=== PATIENT | female | born 1970 | race Caucasian/White ===

== ENCOUNTER 2016-07-04 17:29 | Emergency (ER) | payer MEDICAID ==
[~2016-07-04] VITALS: Ht 154.9 cm; Wt 61.2 kg
[2016-07-04 17:37] VITALS: BP 129/88
== END 2016-07-04 18:26 | disposition home or self-care (01) ==
LOC: ER 17:31
DX: J40 Bronchitis, not specified as acute or chronic (principal); H92.03 Otalgia, bilateral; Z88.0 Allergy status to penicillin
CPT/HCPCS: 71010; 99283; A4606; Z7610

== ENCOUNTER 2018-05-07 14:56 | Emergency (ER) | payer MEDICAID ==
[~2018-05-07] VITALS: Ht 167.6 cm; Wt 65.8 kg
--- NOTE | 2018-05-07 15:29 | NUR ---
1404 BIBRA99, ALCOHOL INTOXICATION. PT IS CALM AND COOPERATIVE. SKIN INTACT, NO ACUTE DISTRESS NOTED. HOOKED TO MONITOR. READY FOR EVAL. WILL MONITOR CLOSELY.
--- NOTE | 2018-05-07 17:14 | NUR ---
Patient is resting comfortably in bed with eyes closed. Easily aroused. VSS. NO COMPLAINTS AT THIS TIME. WILL CONT TO MONITOR.
--- NOTE | 2018-05-07 19:00 | NUR ---
Patient given written and verbal discharge instructions. Patient verbalizes understanding of instructions. Patient is ambulatory with steady gait. Refuses offer of assisted placement. Patient given list of available shelters in surrounding area. ALSO GIVEN FOOD, JUICE, AND TAP CARD.
[2018-05-07 19:51] VITALS: BP 110/68
== END 2018-05-07 19:00 | disposition home or self-care (01) ==
LOC: ER 15:00
DX: F10.129 Alcohol abuse with intoxication, unspecified (principal); Z88.0 Allergy status to penicillin; Z88.1 Allergy status to other antibiotic agents; Y90.9 Presence of alcohol in blood, level not specified

== ENCOUNTER 2019-11-28 10:58 | Emergency (ER) | payer OTHER ==
[~2019-11-28] VITALS: Ht 149.9 cm; Wt 70.8 kg
--- NOTE | 2019-11-28 11:07 | NUR ---
COLEEN SANTIAGO [phone] SISTER
--- NOTE | 2019-11-28 11:32 | NUR ---
MAXI TO ER BED 14. AWAKE, ALERT BUT INTOXICATED ADMITS TO DRINKING. NOT IN RESP DISTRESS. BROUGHT IN FOR ALCOHOL INTOXICATION. MD WAS AT THE BEDSIDE FOR EVAL. ORDERS RECEIVED. SUPERVISORY INVESTIGATIVE SPECIALIST WAS AT THE BEDSIDE FOR BLOOD DRAW.
[2019-11-28] MEDS ORDERED: MULTIVITAMINS,THERAGRAN 1 UDTAB TABLET PO SCH (13:00)
[2019-11-28] MEDS ORDERED: IV 1/2NS 1000 ML 1,000 ML IV PRN (13:00)
[2019-11-28] MEDS ORDERED: FOLIC ACID 1 MG TABLET PO ONE (13:00)
[2019-11-28] MEDS ORDERED: ONDANSETRON HCL/PF 4 MG/2 ML VIAL IVP PRN (13:00)
[2019-11-28] MEDS ORDERED: MAG HYDROX/AL HYDROX/SIMETH 30 ML UDC PO PRN (13:00)
[2019-11-28] MEDS ORDERED: MAGNESIUM HYDROXIDE 30 ML UDC PO PRN (13:00)
[2019-11-28] MEDS ORDERED: ACETAMINOPHEN 325 MG TABLET PO PRN (13:00)
[2019-11-28] MEDS ORDERED: LORAZEPAM 1 MG TABLET PO PRN (13:00)
[2019-11-28] MEDS ORDERED: THIAMINE HCL 100 MG TABLET PO ONE (13:00)
[2019-11-28] MEDS ORDERED: FOLIC ACID 1 MG TABLET ONE (13:11)
[2019-11-28] MEDS ORDERED: THIAMINE HCL 100 MG TABLET ONE (13:11)
--- NOTE | 2019-11-28 15:20 | NUR ---
PT IS AWAKE. REQUESTING TO GO HOME. PT'S AMBULATION WAS TESTED AND PT'S GAIT IS STEADY W/O ASSIST. PT WAS PROVIDED WITH WATER PER PT REQUEST.
--- NOTE | 2019-11-28 15:23 | NUR ---
SPOKE WITH TORRES OCONNELL REGARDING PT DISCHARGE. PT IS CLEARED FOR DISCHARGE.
--- NOTE | 2019-11-28 15:40 | NUR ---
Patient discharged to home in stable condition. Written and verbal after care instructions given. Patient verbalizes understanding of instruction.IV removed. Catheter intact and site benign. Pressure and 4x4 applied to site. No bleeding noted. Pt ambulatory with a steady gait
[2019-11-28 15:41] VITALS: BP 151/98
== END 2019-11-28 15:41 | disposition home or self-care (01) ==
LOC: ER 11:02
DX: F10.129 Alcohol abuse with intoxication, unspecified (principal); Y90.8 Blood alcohol level of 240 mg/100 ml or more; Z88.0 Allergy status to penicillin
CPT/HCPCS: 36415; 80320; 96360; 96361; 99284; J3490; G0480

== ENCOUNTER 2020-05-07 07:41 | Emergency (ER) | payer OTHER ==
[~2020-05-07] VITALS: Ht 165.1 cm; Wt 67.1 kg
--- NOTE | 2020-05-07 07:41 | NUR ---
PT BIBRA39 FROM STREETS, SITTING ON A BENCH W/ A BOTTLE OF TEQUILA. PT IS AAOX3, NOT IN RESPIRATORY DISTRESS, HOOKED TO INSTRUMENT AND CONTROLS TECHNICIAN, KEPT RESTED AND COMFORTABLE. WILL CONTINUE TO MONITOR.
--- NOTE | 2020-05-07 08:15 | NUR ---
IV LINE ESTABLISHED BLOOD DRAWN AND SENT TO LAB.
[2020-05-07 08:46] LABS: CALCIUM, SERUM 8.4 mg/dL (8.5-10.1); CARBON DIOXIDE 26 mmol/L (21-32); CHLORIDE 108 mmol/L (98-107); CREATININE 0.4 mg/dL (0.6-1.3); GLUCOSE 99 mg/dL (74-106); POTASSIUM 4.3 mmol/L (3.5-5.1); SODIUM SERUM 145 mmol/L (136-145); UREA NITROGEN, BLOOD 7 mg/dL (7-18)
[2020-05-07] MEDS: IV NS 0.9% 500 ML BAG IV ONE (08:46)
[2020-05-07 09:00] LABS: ALANINE AMINOTRANSFERASE 19 U/L (12-78); ALBUMIN 3.4 g/dL (3.4-5.0); ALKALINE PHOSPHATASE 77 U/L (46-116); ASPARTATE AMINOTRANSFERASE 28 U/L (15-37); BILIRUBIN,TOTAL 0.3 mg/dL (0.2-1.0); TOTAL PROTEIN, SERUM 7.7 g/dL (6.4-8.2)
[2020-05-07 09:11] LABS: ALCOHOL, BLOOD 449 mg/dL (0-0)
[2020-05-07 09:14] LABS: ACETAMINOPHEN < 10 ug/ml (10-30)
[2020-05-07 09:22] LABS: BASOPHILS # (AUTO) 0.1 /CMM (0.0-0.2); EOSINOPHILS % (AUTO) 3.4 % (0.0-6.0); HEMATOCRIT 33 % (33-45); HEMOGLOBIN 10.5 g/dL (11.5-14.8); LYMPHOCYTES % (AUTO) 35.1 % (20.0-44.0); MEAN CORPUSCULAR HGB CONC 32 g/dl (31.0-36.0); MEAN CORPUSCULAR VOLUME 85 fL (82-100); MONOCYTES # (AUTO) 0.5 /CMM (0.1-1.30); MONOCYTES % (AUTO) 8.6 % (2.0-12.0); NEUTROPHILS % (AUTO) 51.9 % (43.0-81.0); PLATELET COUNT (AUTO) 372 /CMM (150-450); RED BLOOD CELL COUNT(AUTO) 3.84 MIL/uL (4.0-5.2); WHITE BLOOD COUNT (AUTO) 5.7 K/uL (4.3-11.0)
--- NOTE | 2020-05-07 10:44 | NUR ---
SW spoke with pt.'s nurse to determine level of sobriety. Per Nurse, pt. is still very intoxicated at this time. SW will follow up at a later time to assess and provide addiction resources.
--- NOTE | 2020-05-07 12:42 | NUR ---
SPOKE WITH FAMILY MARBIN THAT PT NEED TO BE PICKED UP. HE WILL BE ABLE TO PICK HER UP AROUND 5PM BECAUSE HE IS CURRENTLY AT WORK
--- NOTE | 2020-05-07 13:15 | NUR ---
SS Consult: SS Consult requested for ETOH withdrawal. The pt. is a 49-year old female. SW met with pt. at bedside. The pt. is lying in bed and started crying stating "I want to leave". Pt. is Alert & oriented x 4. Pt. appears disheveled with bloodshot eyes. Patient stated, "I am a drunk, I don't want to be here". Patient could not elaborate regarding amount & frequency of her drinking habits. SW inquired about pt.'s living conditions, address to assist with discharge planning. Patient became agitated and shouted "I am not going to cooperate with you. Your little empathy won't work". Patient requested that SW leave. SW will be available as needed. Patient refused resources and refused to sign homeless waiver. SW placed homeless waiver, homeless & addiction resources in pt.'s discharge packet. Addendum: 05/07/20 at 1457 by TABITHA Substance Abuse resources provided included: [facility] Substance Abuse Self-Helpline ([facility]) ; CRI -HELP [address] [facility]. [place] [id number] ; [facility] [address] [facility] [address] ; [facility] Rehabilitation Program [address] [facility] [address] ; [facility] 400 [facility] [address] ; [facility] [address] [facility] [phone] ; [facility] [address] [facility] [id number] ; [facility] Substance Abuse Helpline(SAS)[facility] ; [facility] ; Cidar Carlyle [place]; [facility] [place]; Cri-Help [place]; I-ADARP Inter Agency Drug Abuse Recovery Sky Flores; [facility]; [place] Carlyle [facility]; [facility]; [facility] [place], [facility]. Tawana Persaud; Alcoholics Anonymous -SFV; Ra-Qfkk-Fynbifg ; Marijuana Anonymous -SFV; Narcotics Anonymous www.na.org; Year-round shelters: [facility] [address] [place], [place] [phone] ; [place] [facility] [address] [place] [address]; [facility] Rtzmqpd4226 [facility] [id number] Winter Shelters: Abdulaziz Persaud Provider: [facility] [place] Address: [address], [address] # of Beds: 47 Population Served: [facility] 6 | [facility] Mallory Zapata [place] Provider: [facility] Last Address: [address], [address] # of Beds: 66 Population Served: Brett Kaibab [place] Provider: First to Serve Address: [address] [facility], [address] # of Beds: 56 Population Served: Brett [place] Provider: /[facility] Address: [address] [facility], [address] # of Beds: 49 Population Served: Coed SPA 8 | [place] Provider: First to Serve Address: [address] [facility] [address], [address] # of Beds: 37 Population Served: Coed Hygiene: [facility]: [address] [place] ; [facility] [address] [facility] [place] ; [facility] [address] [place] . Food Resources: [place] [facility] at [facility]- [address] [facility]; Meet Each Need with Dignity ([facility]) [address] [facility]; [facility] Food Pantry 4366 [facility]; [facility] 8516 [facility]. Mental Health resources provided: [facility] [address] [place], [place] [phone] ; [facility] [address] [facility] [address], [place], [place] [phone] ; Judi Salazar [facility] [address], [place] [phone] ; [facility] [address] [place], [place] [address] Healthcare Clinics: [facility] [address] [facility], [address] [place]. [place] ; [facility] [address] [facility] [address] [place] [address]; [facility] [address] [facility] [address] [facility]. [place] [id number] [phone]) [phone] Counseling--Outpatient [facility] [address] [facility], [place] [address] (Specializes in in-depth psychotherapy for emotional distress: anxiety, depression, interpersonal conflicts, life transitions, childhood abuse) [facility] [address] [place] [address] (Assist with solving problem marital difficulties, separation & divorce, aging parents, & grief, chronic & terminal illness) [facility] [address] [place] [address] (Deal with loss & grief, anxiety, marital difficulties) Homebound/Mental Health Services [address] [facility] [facility] [address] [place], [place] [phone] (Provide in-home mental services to people who are incapable of leaving their homes) Organization for Needs of the Elderly Senior Service/Resource Center [address] [place], [place] [phone] [facility] [address] [place], [place] [phone] PSYCHIATRIC OUTPATIENT SERVICES [facility] Partial Hospitalization and Intensive Outpatient Program (Managed Care and [place] Only)[address]162 [facility] [phone] [facility] Partial Hospitalization and Outpatient [id number] [address] [place], [place] [phone] [facility] Partial Hospitalization and Outpatient [id number] [place] Mark [facility] [place], [place] [phone] [facility] [id number] [address] [place], [place] [phone] [facility] Partial Hospitalization and Outpatient [id number] [place] [phone]
--- NOTE | 2020-05-07 15:39 | NUR ---
Patient given written and verbal discharge instructions. Patient verbalizes understanding of instructions. Patient is ambulatory with steady gait. Refuses offer of longterm placement. Patient given list of available shelters in surrounding area.
[2020-05-07 15:40] VITALS: BP 122/71
== END 2020-05-07 15:47 | disposition home or self-care (01) ==
LOC: ER 07:52
DX: F10.129 Alcohol abuse with intoxication, unspecified (principal); Y90.8 Blood alcohol level of 240 mg/100 ml or more; Z88.0 Allergy status to penicillin
CPT/HCPCS: 36415; 80048; 80076; 80299; 80320; 85025; 96360; 99283; J7030; G0480

== ENCOUNTER 2020-08-25 13:20 | Emergency (ER) | payer OTHER ==
[~2020-08-25] VITALS: Ht 167.6 cm; Wt 71.7 kg
[2020-08-25 13:25] VITALS: BP 98/59
--- NOTE | 2020-08-25 14:21 | NUR ---
urine collected and sent to lab.
[2020-08-25 14:46] LABS: BASOPHILS # (AUTO) 0.1 K/uL (0.0-0.2); BASOPHILS % (AUTO) 1.6 % (0.0-2.0); EOSINOPHILS % (AUTO) 1.3 % (0.0-6.0); HEMATOCRIT 29 % (33-45); HEMOGLOBIN 9.5 g/dL (11.5-14.8); LYMPHOCYTES # (AUTO) 1.9 K/uL (0.8-4.8); LYMPHOCYTES % (AUTO) 32.8 % (20.0-44.0); MEAN CORPUSCULAR HGB CONC 33 g/dl (31.0-36.0); MEAN CORPUSCULAR VOLUME 84 fL (82-100); MONOCYTES # (AUTO) 0.5 K/uL (0.1-1.30); MONOCYTES % (AUTO) 8.6 % (2.0-12.0); NEUTROPHILS # (AUTO) 3.2 K/uL (1.8-8.9); NEUTROPHILS % (AUTO) 55.7 % (43.0-81.0); PLATELET COUNT (AUTO) 602 K/uL (150-450); RED BLOOD CELL COUNT(AUTO) 3.51 MIL/uL (4.0-5.2); WHITE BLOOD COUNT (AUTO) 5.8 K/uL (4.3-11.0)
[2020-08-25 15:01] LABS: ALANINE AMINOTRANSFERASE 22 U/L (12-78); ALCOHOL, BLOOD 451 mg/dL (0-0); ALKALINE PHOSPHATASE 79 U/L (46-116); ASPARTATE AMINOTRANSFERASE 26 U/L (15-37); BILIRUBIN,DIRECT 0.1 mg/dL (0.0-0.2); BILIRUBIN,TOTAL 0.4 mg/dL (0.2-1.0); CARBON DIOXIDE 25 mmol/L (21-32); CHLORIDE 102 mmol/L (98-107); CREATININE 0.6 mg/dL (0.6-1.3); GLUCOSE 85 mg/dL (74-106); SODIUM SERUM 136 mmol/L (136-145); TOTAL PROTEIN, SERUM 6.9 g/dL (6.4-8.2); UREA NITROGEN, BLOOD 7 mg/dL (7-18)
[2020-08-25 15:02] LABS: ACETAMINOPHEN < 0 ug/ml (10-30)
[2020-08-25 15:08] LABS: BILIRUBIN,URINE NEGATIVE (NEGATIVE); COLOR,URINE STRAW (YELLOW); LEUKOCYTE ESTERASE ,URINE NEGATIVE (NEGATIVE); NITRITE, URINE NEGATIVE (NEGATIVE); PH,URINE 5.5 (5.0-8.0); PROTEIN,URINE NEGATIVE (NEGATIVE); UGLUCOSE NEGATIVE (NEGATIVE); UROBILINOGEN,URINE 0.2 EU/dL (0.2)
--- NOTE | 2020-08-25 16:21 | NUR ---
SIGNIFICANT OTHER [phone] NOT AVAILABLE
--- NOTE | 2020-08-25 16:24 | NUR ---
SLADE BK SANTIAGO [phone] SISTER.
--- NOTE | 2020-08-25 16:43 | NUR ---
SS Consult: SS Consult requested for ETOH. The pt. is a 49 year Old female who was BIBRA after being found drunk on the grass outside apartment building. The pt. appears unkempt and makes good eye contact. The pt.s speech & thought process are WNL. Pt. denies SI/HI and denies hallucinations. Pt.s mood is depressed and became teary eyed during interview. Pt. states she drinks beer daily and refused to disclose any biopsychosocial triggers or stressors. Pt. denies being homeless and states she resides at [address] [place] [address]; [phone] alone. Pt. states she has 3 kids who are her support system but they live in [place]. Pt. states she receives food stamps and is ambulatory. Pt. states that drinking is a problem for her. SHIN provided pt. with addiction resources and pt. accepted them. SW offered pt. referral to rehab and pt. is agreeable. SHIN faxed clinicals to [facility] TEL: [phone] . SHIN discussed plan with Dr. Witt. Pt. can be discharge home when medically cleared and [facility] will call pt. when they have a bed. ADDICTION RESOURCES For Drugs and Alcohol [facility] Substance Abuse Helpline([facility] Outpatient treatment, residential treatment, recovery support for youth and adults [facility] www.actionfamilycounseling.[facility] Teen programs for drug/alcohol education and support [facility] [place]. Program for adults, sliding scale provides support and education Cinthia [place] www.icanbuyation.org [place]; Outpatient/residential treatment programs; transition to sober living Cri[facility]Help www.cri-help.org [place]; Outpatient and residential treatment programs; transition to sober living I-ADARP Inter Agency Drug Abuse Recovery [place]; Outpatient education and supportive programs for teens and adults [place] www.oasiswomensrecovery.org [facility]; Residential treatment and work program for females only [facility] www.phoPush Technologyxhouse.org [place]: Outpatient/residential treatment program for teens and young adults [facility] www.[facility].org [place]ana Detox, inpatient, outpatient for adults and youth [facility], [facility]. [place]; Outpatient programs and referrals to community residential programs. Alcoholics Anonymous -SFV information and meeting and schedules www.aa-intergroup.org Ur-Hppy-Dyhvkgg https://al-anon.org/ [place] support groups for family of alcoholics. Marijuana Anonymous www.DevoteeistrictMedipacs.org -SFV listing of meetings Narcotics Anonymous www.na.org SOBER LIVING RESOURCES The Sober Living Network www.soberhousing.net A non-profit agency that provides resources to recovery and sober living homes throughout [place], [place], [facility] Sober Living Homes: A Work in Progress, [facility] Recovery Advocates, [place] [facility] Womens Sober Living Homes: [facility] x [phone] [place], [place] [facility] Coed Sober Living Homes: [facility] Counseling--Outpatient [facility] [address] [facility] [place] [address] (Specializes in in-depth psychotherapy for emotional distress: anxiety, depression, interpersonal conflicts, life transitions, childhood abuse) [facility] [address] [place] [address] (Assist with solving problem marital difficulties, separation & divorce, aging parents, & grief, chronic & terminal illness) [facility] [address] [place] [address] (Deal with loss & grief, anxiety, marital difficulties) Homebound/Mental Health Services [address] [facility], [address] [place], [place] [phone] (Provide in-home mental services to people who are incapable of leaving their homes) Organization for Needs of the Elderly Senior Service/Resource Center [address] [place] [address] [facility] [address] [place] [address] Mental Health Services Stefanie De Dios Mulino [address] [place] [address] Services: Outpatient therapy for children, teens, young adults, adults, older adults, and families; Psychiatric services, medication support Psychiatric Outpatient Services [facility] Partial Hospitalization and Intensive Outpatient Program (Managed Care and [place] Only)[address]36 [facility] [phone] [facility] Partial Hospitalization and Outpatient [id number] [facility] [address] [place], [place] [phone] [facility] Partial Hospitalization and Outpatient [id number] [place], [place] [phone] Critical access hospital Mental Health Center [id number] [facility]. [address] [place], [place] [phone] [facility] Partial Hospitalization and Outpatient [id number] [place], [phone] Crisis and Hotline Telephone Numbers 24-Hour service unless stated [place] Crisis Hotlines: [employer]. Mental Health/Crisis Line........678.516.3211 Suicide Prevention Center (24 Hours).......906.115.7421 Suicide Prevention Crisis Center.......[phone] (24 Hours) Assaults Against Women Hotline.........331.760.9952 (24 Hours -- [facility]) Women and Children Crisis Custodial...........[phone] (24 Hours) Child Abuse Hotline............652.712.7919 [facility] of Childrens Services Rape Treatment Center (24 Hours)..........[phone] Alcoholics Anonymous (24 Hours)..........[phone] Cocaine Anonymous (24 Hours)............332.223.6396 Narcotics Anonymous (24 Hours)..........[phone] Judi Salazar Replaced By [facility] [address], [place], [place] [address]
--- NOTE | 2020-08-25 19:15 | NUR ---
PT RESTING IN GURNEY. NO SIGNS OF DISTRESS NOTED. PT VITAL SIGNS STABLE. Patient is awake and alert to self, day, and place. PT REQUESTED TO LEAVE ER BUT WAS INFORMED THAT ALCOHOL LEVEL WAS ELEVATED. WILL CONT TO MONITOR PT.
--- NOTE | 2020-08-25 20:35 | NUR ---
PT THREATENING TO LEAVE ER. SITTER AND SECURITY AT BEDSIDE. PATIENT RAN FROM SITTER AND SECURITY AND ELOPED FROM ER. DR NARVAEZ NOTIFIED.
== END 2020-08-25 20:39 | disposition left against medical advice (07) ==
LOC: ER 13:26
DX: F10.129 Alcohol abuse with intoxication, unspecified (principal); E86.0 Dehydration; Y90.8 Blood alcohol level of 240 mg/100 ml or more; Z88.0 Allergy status to penicillin
CPT/HCPCS: 36415; 80048-TC; 80076-TC; 83735-TC; 85025-TC; G0480

== ENCOUNTER 2020-11-09 12:43 | Emergency (ER) | payer OTHER ==
[~2020-11-09] VITALS: Ht 167.6 cm; Wt 70.3 kg
--- NOTE | 2020-11-09 13:05 | NUR ---
TO ER BED 14 FOR TELMA LION
[2020-11-09 13:22] LABS: MEAN CORPUSCULAR HGB CONC 32 g/dl (31.0-36.0); MEAN CORPUSCULAR VOLUME 84 fL (82-100); MONOCYTES # (AUTO) 0.5 K/uL (0.1-1.30); NEUTROPHILS # (AUTO) 3.7 K/uL (1.8-8.9); WHITE BLOOD COUNT (AUTO) 6.7 K/uL (4.3-11.0)
[2020-11-09 13:24] LABS: BASOPHILS # (AUTO) 0.1 K/uL (0.0-0.2); BASOPHILS % (AUTO) 1.5 % (0.0-2.0); EOSINOPHILS % (AUTO) 1.8 % (0.0-6.0); HEMATOCRIT 37 % (33-45); HEMOGLOBIN 11.7 g/dL (11.5-14.8); LYMPHOCYTES # (AUTO) 2.2 K/uL (0.8-4.8); LYMPHOCYTES % (AUTO) 33.6 % (20.0-44.0); MONOCYTES % (AUTO) 7.3 % (2.0-12.0); NEUTROPHILS % (AUTO) 55.8 % (43.0-81.0); RED BLOOD CELL COUNT(AUTO) 4.34 MIL/uL (4.0-5.2)
[2020-11-09 13:28] LABS: PLATELET COUNT (AUTO) 933 K/uL (150-450)
[2020-11-09 13:32] LABS: CALCIUM, SERUM 8.4 mg/dL (8.5-10.1); CARBON DIOXIDE 21 mmol/L (21-32); CHLORIDE 107 mmol/L (98-107); CREATININE 0.5 mg/dL (0.6-1.3); GLUCOSE 92 mg/dL (74-106); POTASSIUM 4.1 mmol/L (3.5-5.1); SODIUM SERUM 143 mmol/L (136-145); UREA NITROGEN, BLOOD 6 mg/dL (7-18)
[2020-11-09 13:39] LABS: ALANINE AMINOTRANSFERASE 27 U/L (12-78); ALBUMIN 3.2 g/dL (3.4-5.0); ALCOHOL, BLOOD 422 mg/dL (0-0); ALKALINE PHOSPHATASE 108 U/L (46-116); BILIRUBIN,DIRECT 0.1 mg/dL (0.0-0.2); BILIRUBIN,TOTAL 0.2 mg/dL (0.2-1.0); TOTAL PROTEIN, SERUM 7.7 g/dL (6.4-8.2)
[2020-11-09 13:42] LABS: ACETAMINOPHEN < 10 ug/ml (10-30)
[2020-11-09 13:55] LABS: ASPARTATE AMINOTRANSFERASE 33 U/L (15-37)
--- NOTE | 2020-11-09 19:30 | NUR ---
PT AWAKE, ALERT AND AMBULATORY W/ STEADY GAITS. BREATHING EVENLT. REPORTED FEELING WELL AND WILLING TO LEAVE. MADE AWARE.
--- NOTE | 2020-11-09 19:40 | NUR ---
PT STABLE FOR D/C PER MD. WILL BE PICKED UP BY BOY FRIEND. PO INTAKE TOLERATED WELL.
--- NOTE | 2020-11-09 19:41 | NUR ---
Patient discharged to home in stable condition. Written and verbal after care instructions given. Patient verbalizes understanding of instruction.
[2020-11-10 00:26] VITALS: BP 108/70
== END 2020-11-09 19:41 | disposition home or self-care (01) ==
LOC: ER 12:45
DX: F10.129 Alcohol abuse with intoxication, unspecified (principal); R41.82 Altered mental status, unspecified; Z88.0 Allergy status to penicillin; Z88.1 Allergy status to other antibiotic agents; Y90.8 Blood alcohol level of 240 mg/100 ml or more
CPT/HCPCS: 36415; 70450-TC; 80048-TC; 80076-TC; 84702-TC; 85025-TC; G0480

== ENCOUNTER 2021-01-18 10:29 | Emergency (ER) | payer OTHER ==
[~2021-01-18] VITALS: Ht 154.9 cm; Wt 61.2 kg
[2021-01-18 10:32] VITALS: BP 140/80
[2021-01-18] MEDS ORDERED: IBUP-1955 PO (10:37)
--- NOTE | 2021-01-18 10:47 | NUR ---
Patient discharged to home in stable condition. Written and verbal after care instructions given. Patient verbalizes understanding of instruction.
== END 2021-01-18 10:48 | disposition home or self-care (01) ==
LOC: ER 10:34
DX: S13.8XXA Sprain of joints and ligaments of other parts of neck, initial encounter (principal); Z88.0 Allergy status to penicillin; Z88.1 Allergy status to other antibiotic agents; V49.59XA Passenger injured in collision with other motor vehicles in traffic accident, initial encounter; Y93.89 Activity, other specified; Y92.413 State road as the place of occurrence of the external cause; Y99.8 Other external cause status

== ENCOUNTER 2021-06-06 12:27 | Emergency (ER) | payer OTHER ==
[~2021-06-06] VITALS: Ht 154.9 cm; Wt 61.2 kg
[~2021-06-06 12:27] MED LIST: IBUP-1955 PO
--- NOTE | 2021-06-06 12:27 | NUR ---
PT BIBRA [address] C/O ETOH. PT IS AAOX3, NOT IN RESPIRATORY DISTRESS, HOOKED TO V/S MONITOR, KEPT RESTED AND COMFORTABLE. WILL CONTINUE TO MONITOR.
--- NOTE | 2021-06-06 12:32 | NUR ---
SITTER AT BEDSIDE.
--- NOTE | 2021-06-06 12:38 | NUR ---
AT BEDSIDE FOR EVAL.
--- NOTE | 2021-06-06 15:18 | NUR ---
ASSESSED PT ON BED ASLEEP, EASILY AROUSABLE, NOT IN RESPIRATORY DISTRESS, V/S STABLE, KEPT RESTED AND COMFORTABLE. WILL CONTINUE TO MONITOR.
--- NOTE | 2021-06-06 16:48 | NUR ---
PT ABLE TO AMBULATE WITHOUT ASSISTANCE AND REQUESTING TO BE DISCHARGED.
--- NOTE | 2021-06-06 17:04 | NUR ---
Patient discharged to home in stable condition. Written and verbal after care instructions given. Patient verbalizes understanding of instruction.
[2021-06-06 17:05] VITALS: BP 108/64
== END 2021-06-06 17:05 | disposition home or self-care (01) ==
LOC: ER 12:32
DX: F10.129 Alcohol abuse with intoxication, unspecified (principal); I10 Essential (primary) hypertension; Z88.0 Allergy status to penicillin; Z79.899 Other long term (current) drug therapy; Y90.9 Presence of alcohol in blood, level not specified

== ENCOUNTER 2021-12-28 22:08 | Emergency (ER) | payer OTHER ==
[~2021-12-28] VITALS: Ht 154.9 cm; Wt 54.4 kg
[2021-12-28 22:17] VITALS: BP 107/92
--- NOTE | 2021-12-28 22:17 | NUR ---
BIBRA 839 FROM [employer] FOR ETOH. A, OX4 ON TRAIGE. ADMITTED ON DRINKING "TOO MUCH" ALCOHOL. VSS. DENIED SI/ HI
--- NOTE | 2021-12-28 22:52 | NUR ---
GLU 85
== END 2021-12-29 02:21 | disposition home or self-care (01) ==
LOC: ER 22:12
DX: S00.83XA Contusion of other part of head, initial encounter (principal); F10.129 Alcohol abuse with intoxication, unspecified; Z88.0 Allergy status to penicillin; Z59.00 Homelessness unspecified; Z79.1 Long term (current) use of non-steroidal anti-inflammatories (NSAID); X58.XXXA Exposure to other specified factors, initial encounter; Y93.89 Activity, other specified; Y92.89 Other specified places as the place of occurrence of the external cause; Y99.8 Other external cause status; Y90.9 Presence of alcohol in blood, level not specified
CPT/HCPCS: 99284; 70450; 82962; J7040

== ENCOUNTER 2022-06-01 18:12 | Emergency (ER) | payer OTHER ==
[~2022-06-01] VITALS: Ht 154.9 cm; Wt 59.0 kg
--- NOTE | 2022-06-01 19:00 | NUR ---
1834 [address]IB RA [address], ETOH/NAUSEA/VOMITING. PT A/OX4. TOLERATING R/A WELL WITH NO RESP DISTRESS. CONNECTED PT TO POX AND MONITOR. SAFETY MEASURES IN PLACE.
[2022-06-01] MEDS ORDERED: ONDANSETRON HCL/PF 4 MG/2 ML VIAL ONE (19:28)
[2022-06-01] MEDS ORDERED: IV NS 0.9% 1,000 ML BAG IV ONE (19:30)
[2022-06-01] MEDS ORDERED: ONDANSETRON HCL/PF 4 MG/2 ML VIAL IVP ONE (19:30)
--- NOTE | 2022-06-01 19:45 | NUR ---
RAC #18G S/L BLOOD COLLECTED AND SENT TO LAB
--- NOTE | 2022-06-01 19:47 | NUR ---
URINE COLLECTED AND SENT TO LAB
[2022-06-01 19:52] LABS: BASOPHILS # (AUTO) 0.1 K/uL (0.0-0.2); BASOPHILS % (AUTO) 1.8 % (0.0-2.0); EOSINOPHILS % (AUTO) 0.5 % (0.0-6.0); HEMATOCRIT 33 % (33-45); HEMOGLOBIN 10.5 g/dL (11.5-14.8); LYMPHOCYTES # (AUTO) 1.6 K/uL (0.8-4.8); LYMPHOCYTES % (AUTO) 28.9 % (20.0-44.0); MEAN CORPUSCULAR HGB CONC 32 g/dl (31.0-36.0); MEAN CORPUSCULAR VOLUME 80 fL (82-100); MONOCYTES # (AUTO) 0.3 K/uL (0.1-1.30); MONOCYTES % (AUTO) 5.4 % (2.0-12.0); NEUTROPHILS # (AUTO) 3.5 K/uL (1.8-8.9); NEUTROPHILS % (AUTO) 63.4 % (43.0-81.0); PLATELET COUNT (AUTO) 703 K/uL (150-450); RED BLOOD CELL COUNT(AUTO) 4.05 MIL/uL (4.0-5.2); WHITE BLOOD COUNT (AUTO) 5.5 K/uL (4.3-11.0)
[2022-06-01 20:10] LABS: CALCIUM, SERUM 8.7 mg/dL (8.5-10.1); CREATININE 0.7 mg/dL (0.6-1.3); POTASSIUM 4.5 mmol/L (3.5-5.1)
[2022-06-01 20:16] LABS: ALBUMIN 3.7 g/dL (3.4-5.0); BILIRUBIN,DIRECT 0.2 mg/dL (0.0-0.2); BILIRUBIN,TOTAL 0.6 mg/dL (0.2-1.0); TOTAL PROTEIN, SERUM 7.5 g/dL (6.4-8.2)
--- NOTE | 2022-06-01 20:18 | NUR ---
PT TAKEN TO CT VIA FORD
[2022-06-01 20:29] LABS: BILIRUBIN,URINE NEGATIVE (NEGATIVE); COLOR,URINE YELLOW (YELLOW); LEUKOCYTE ESTERASE ,URINE NEGATIVE (NEGATIVE); NITRITE, URINE NEGATIVE (NEGATIVE); PROTEIN,URINE NEGATIVE (NEGATIVE); UGLUCOSE NEGATIVE (NEGATIVE); UROBILINOGEN,URINE 0.2 EU/dL (0.2)
[2022-06-01 20:40] LABS: BACTERIA,URINE 3+ /HPF (None Seen); RBC,URINE 0-2 /HPF (0-2); SQUAMOUS EPITHELIAL CELL,UR Few /HPF (None Seen); WBC,URINE 0-2 /HPF (0-3)
[2022-06-02 01:45] VITALS: BP 121/73
--- NOTE | 2022-06-02 01:45 | NUR ---
Patient discharged to home in stable condition. Written and verbal after care instructions given. Patient verbalizes understanding of instruction. PT ambulatory with a steady gait
== END 2022-06-02 01:46 | disposition home or self-care (01) ==
LOC: ER 19:37
DX: F10.129 Alcohol abuse with intoxication, unspecified (principal); R11.2 Nausea with vomiting, unspecified; R51.9 Headache, unspecified; M54.2 Cervicalgia; J45.909 Unspecified asthma, uncomplicated; Z88.0 Allergy status to penicillin; Z60.2 Problems related to living alone; Y90.8 Blood alcohol level of 240 mg/100 ml or more
CPT/HCPCS: 99285; 96374; 96361; 72125; 70450; 85025; 80048; 87086; 80076; 81001; 36415; 80143; 80320; 80307; J2405; J7030; G0480

== ENCOUNTER 2022-10-09 12:48 | Emergency (ER) | payer OTHER ==
[~2022-10-09] VITALS: Ht 154.9 cm; Wt 56.7 kg
[2022-10-09 12:56] VITALS: BP 134/68; TEMP 98.4
[2022-10-09] MEDS ORDERED: PERM60CR4 TP (13:45)
[2022-10-09] MEDS ORDERED: IBUP-1955 PO (13:45)
[2022-10-09 13:52] VITALS: O2SAT 98
== END 2022-10-09 13:56 | disposition home or self-care (01) ==
LOC: ER 12:52
DX: B85.0 Pediculosis due to Pediculus humanus capitis (principal); L29.9 Pruritus, unspecified; M79.672 Pain in left foot; M79.671 Pain in right foot; Z59.00 Homelessness unspecified; Z88.0 Allergy status to penicillin